=== PATIENT | male | born 1980 | race African-American/Black ===

== ENCOUNTER 2018-03-06 06:50 | Emergency (ER) | payer MEDICAID ==
[~2018-03-06] VITALS: Ht 162.6 cm; Wt 70.0 kg
[2018-03-06] MEDS ORDERED: ONDANSETRON HCL 4MG/2ML VIAL IV STA (07:04)
[2018-03-06] MEDS ORDERED: SODIUM CHLORIDE 0.9% 1,000 ML IV ONE (07:04)
[2018-03-06] MEDS ORDERED: PANTOPRAZOLE SODIUM 40 MG/VIAL IV STA (07:04)
[2018-03-06] MEDS ORDERED: MAGNESIUM/ALUMINUM HYDROXIDE/SIMETHICONE 30ML UDC PO STA (07:04)
[2018-03-06 08:00] LABS: HEMATOCRIT. 29.2 % (42.0-52.0); HEMOGLOBIN. 8.2 g/dL (14.0-18.0); MEAN CORPUSCULAR HEMOGLOBIN 18.7 pg (28.0-32.0); MEAN CORPUSCULAR VOLUME 66.4 fL (80.0-94.0); MEAN PLATELET VOLUME 7.8 fl (7.4-10.4); PLATELET 243 x1000/uL (130-400); RED CELL DISTRIBUTION WIDTH 19.6 % (11.6-14.6)
[2018-03-06 08:05] LABS: CHLORIDE 111 mEq/L (98-107)
[2018-03-06 08:11] LABS: ETHANOL BLOOD < 10 mg/dL
[2018-03-06 09:00] LABS: PLATELET ESTIMATE NORMAL
[2018-03-06] MEDS ORDERED: MORPHINE SULFATE 4 MG/ML CPJ (NOT FOR IM USE) IV ONE (09:30)
[2018-03-06 10:40] VITALS: BP 139/71
== END 2018-03-06 12:16 | disposition home or self-care (01) ==
LOC: ER 06:50
DX: R10.13 Epigastric pain (principal); D64.9 Anemia, unspecified; F17.200 Nicotine dependence, unspecified, uncomplicated
CPT/HCPCS: 36415; 74176; 80053; 83690; 85025; 96374; 96375; 99285; C9113; G0482; J2270; J2405; J7030; Z7610; 96361

== ENCOUNTER 2025-07-06 09:26 | Inpatient (IN) | payer MEDICAID ==
[~2025-07-06] VITALS: Ht 167.6 cm; Wt 59.6 kg
[2025-07-06 09:31] VITALS: O2SAT 100
[2025-07-06] MEDS: MORPHINE SULFATE 4 MG/ML INJ (FOR IV/IM USE) IV ONE (09:49)
[2025-07-06] MEDS: ONDANSETRON HCL 4MG/2ML INJ IV ONE (09:51)
[2025-07-06 09:57] LABS: BASOPHILS % 1.2 % (0.0-2.0); EOSINOPHILS % 0.6 % (0.0-5.0); HEMATOCRIT. 35.0 % (42.0-52.0); HEMOGLOBIN. 10.7 g/dL (14.0-18.0); LYMPHOCYTES % 11.1 % (20.0-50.0); MEAN PLATELET VOLUME 7.9 fl (7.4-10.4); MONOCYTES % 4.6 % (2.0-8.0); NEUTROPHILS % 82.5 % (40.0-76.0); PLATELET 275 x1000/uL (130-400); RED BLOOD CELL COUNT 4.34 mill/uL (4.7-6.1); RED CELL DISTRIBUTION WIDTH 17.7 % (11.6-14.6)
[2025-07-06 10:28] LABS: TROPONIN I HIGH SENSITIVITY 740 ng/L (3.0-53)
[2025-07-06 10:30] LABS: CREATININE 0.8 mg/dL (0.6-1.3); PROTEIN TOTAL 7.1 g/dL (6.0-8.3); UREA NITROGEN BLOOD 7 mg/dL (9-23)
[2025-07-06 10:31] LABS: ASPARTATE AMINOTRANSFERASE 32 IU/L (<34)
[2025-07-06 10:32] LABS: BILIRUBIN DIRECT 0.1 mg/dL (<=3.0); BILIRUBIN TOTAL 0.3 mg/dL (0.1-1.0)
[2025-07-06] MEDS: ASPIRIN 325MG EC TABLET PO ONE (11:15)
[2025-07-06] MEDS ORDERED: ONDANSETRON HCL 4MG/2ML INJ IV PRN (12:30)
[2025-07-06] MEDS ORDERED: MAGNESIUM/ALUMINUM HYDROXIDE/SIMETHICONE 30ML UDC PO PRN (12:30)
[2025-07-06] MEDS ORDERED: DOCUSATE SODIUM 100MG CAPSULE PO PRN (12:30)
[2025-07-06] MEDS ORDERED: ACETAMINOPHEN 325MG TABLET PO PRN ×2 (12:30)
[2025-07-06] MEDS ORDERED: CLONIDINE 0.1MG TABLET PO PRN (12:30)
[2025-07-06] MEDS ORDERED: IPRATROPIUM/ALBUTEROL 0.5-3(2.5)MG/3ML NEB HHN PRN (12:30)
[2025-07-06] MEDS ORDERED: GUAIFENESIN 200MG/10ML SUGAR FREE UDC PO PRN (12:30)
[2025-07-06] MEDS: ENOXAPARIN 60MG/0.6ML SYR SUBCUT NR (12:49)
[2025-07-06] MEDS: ISOSORBIDE MONONITRATE 30MG TABLET SR 24HR PO SCH ×2 (12:57→18:32)
[2025-07-06 13:00] VITALS: BP 159/79; PULSE 73; RESP 19; TEMP 36.2; O2SAT 97
[2025-07-06 15:26] VITALS: BP 159/79; PULSE 73; RESP 19; TEMP 36.1956
[2025-07-06 16:30] VITALS: BP 150/85; PULSE 69; RESP 18; TEMP 36.2; O2SAT 97
[2025-07-06] MEDS: NITROGLYCERIN 0.4MG TABLET SL SL PRN (17:07)
[2025-07-06 18:52] LABS: CLARITY URINE CLEAR (CLEAR); COLOR URINE YELLOW (YELLOW); GLUCOSE URINE NEGATIVE (NEGATIVE); KETONES URINE 2+ (NEGATIVE); LEUKOCYTE ESTERASE URINE NEGATIVE (NEGATIVE); NITRITE URINE NEGATIVE (NEGATIVE); OCCULT BLOOD URINE NEGATIVE (NEGATIVE); PH URINE 8.0 (4.5-8.0); PROTEIN URINE NEGATIVE (NEGATIVE); SPECIFIC GRAVITY URINE 1.014 (1.005-1.030); UROBILINOGEN URINE 0.2 E.U./dL (0.2-1.0)
[2025-07-06 19:07] LABS: *AMPHETAMINES SCREEN URINE NEGATIVE (NEGATIVE)
[2025-07-06 19:08] LABS: *BARBITURATES SCREEN URINE NEGATIVE (NEGATIVE); *BENZODIAZEPINES SCREEN URINE NEGATIVE (NEGATIVE); *COCAINE SCREEN URINE NEGATIVE (NEGATIVE); CANNABINOID URINE SCREEN PRESUMPTIVE POSITIVE (NEGATIVE); ECSTASY MDMA SCREEN URINE NEGATIVE (NEGATIVE); METHADONE URINE SCREEN NEGATIVE (NEGATIVE); OPIATES URINE SCREEN PRESUMPTIVE POSITIVE (NEGATIVE); PHENCYCLIDINE URINE SCREEN NEGATIVE (NEGATIVE)
[2025-07-06 19:24] LABS: TROPONIN I HIGH SENSITIVITY 728 ng/L (3.0-53)
[2025-07-06 19:25] LABS: INR 1.0
[2025-07-06 19:53] VITALS: BP 132/82; PULSE 87; RESP 18; TEMP 36.3; O2SAT 99
[2025-07-06] MEDS: MORPHINE SULFATE 2 MG/ML INJ (NOT FOR IM USE) IV PRN (20:25)
[2025-07-06 20:49] LABS: FOLIC ACID (FOLATE) SERUM 11.51 ng/mL (>5.38)
[2025-07-06 20:50] LABS: VITAMIN B12 SERUM 518 pg/mL (211-911)
[2025-07-06] MEDS: ATORVASTATIN CALCIUM 40MG TABLET PO SCH (21:00)
[2025-07-07] VITALS: BP 134/87; PULSE 89; RESP 18; TEMP 36.6; O2SAT 99
[2025-07-07 04:06] VITALS: BP 142/74; PULSE 77; RESP 18; TEMP 36.3; O2SAT 98
[2025-07-07] MEDS ORDERED: DIPHENHYDRAMINE 50MG/ML VIAL ONE (07:22)
[2025-07-07] MEDS ORDERED: HEPARIN 1000 UNITS/ML 10ML ONE ×2 (07:22→09:35)
[2025-07-07] MEDS ORDERED: ATROPINE SULFATE 1MG/10ML SYR ONE ×2 (07:22→10:14)
[2025-07-07] MEDS ORDERED: LIDOCAINE HCL 1% 20ML VIAL ONE (07:22)
[2025-07-07] MEDS ORDERED: EPINEPHRINE 0.1MG/ML (1:10,000) 10ML SYR ONE (07:22)
[2025-07-07] MEDS ORDERED: VERAPAMIL HCL 2.5 MG/1 ML 2ML VIAL IV ONE (07:22)
[2025-07-07] MEDS ORDERED: IODIXANOL 320MG/ML 100 ML BOTTLE IV ONE ×3 (07:23→10:18)
[2025-07-07 08:14] LABS: BASOPHILS % 0.3 % (0.0-2.0); EOSINOPHILS % 3.3 % (0.0-5.0); HEMATOCRIT. 34.5 % (42.0-52.0); HEMOGLOBIN. 10.7 g/dL (14.0-18.0); LYMPHOCYTES % 20.8 % (20.0-50.0); MEAN PLATELET VOLUME 7.9 fl (7.4-10.4); MONOCYTES % 9.2 % (2.0-8.0); NEUTROPHILS % 66.4 % (40.0-76.0); PLATELET 243 x1000/uL (130-400); RED BLOOD CELL COUNT 4.36 mill/uL (4.7-6.1); RED CELL DISTRIBUTION WIDTH 16.9 % (11.6-14.6)
[2025-07-07 08:27] LABS: CREATININE 0.7 mg/dL (0.6-1.3)
[2025-07-07 08:28] LABS: LDL CHOLESTEROL 93 mg/dL (5-100); PROTEIN TOTAL 6.5 g/dL (6.0-8.3); TRIGLYCERIDE 110 mg/dL (0-150); UREA NITROGEN BLOOD < 5 mg/dL (9-23)
[2025-07-07 08:29] LABS: ASPARTATE AMINOTRANSFERASE 24 IU/L (<34)
[2025-07-07 08:30] VITALS: BP 147/80; PULSE 87; RESP 17; TEMP 36.8; O2SAT 87
[2025-07-07 08:30] LABS: BILIRUBIN DIRECT 0.1 mg/dL (<=3.0); BILIRUBIN TOTAL 0.5 mg/dL (0.1-1.0)
[2025-07-07 08:31] LABS: T4 FREE 0.84 ng/dL (0.89-1.76)
[2025-07-07 08:41] LABS: TROPONIN I HIGH SENSITIVITY 701 ng/L (3.0-53)
[2025-07-07] MEDS: ISOSORBIDE MONONITRATE 30MG TABLET SR 24HR PO SCH (09:00)
[2025-07-07] MEDS: ENOXAPARIN 60MG/0.6ML SYR SUBCUT SCH (09:00)
[2025-07-07] MEDS: ASPIRIN 81MG EC TABLET PO SCH (09:20)
[2025-07-07] MEDS: PANTOPRAZOLE SODIUM 40 MG/VIAL IV SCH (09:25)
[2025-07-07] MEDS ORDERED: LIDOCAINE HCL/PF 1% 10 MG/ML 5ML VIAL ONE (09:35)
[2025-07-07] MEDS ORDERED: FENTANYL CITRATE/PF 50MCG/ML 2ML VIAL ONE (10:14)
[2025-07-07] MEDS ORDERED: MIDAZOLAM HCL 2 MG/2 ML VIAL ONE (10:14)
[2025-07-07] MEDS ORDERED: ATROPINE SULFATE 1MG/10ML SYR IV PRN (11:15)
[2025-07-07 14:30] VITALS: BP 138/73; PULSE 89; RESP 18; TEMP 36.6; O2SAT 100
[2025-07-07] MEDS: ENOXAPARIN 40MG/0.4ML SYR SUBCUT SCH (16:00)
[2025-07-07 16:25] VITALS: BP 131/74; PULSE 86; RESP 18; TEMP 35.7; O2SAT 97
[2025-07-07] MEDS ORDERED: NALOXONE HCL 0.4MG/ML VIAL IV PRN (17:00)
[2025-07-07 20:00] VITALS: BP 140/87; PULSE 77; RESP 20; O2SAT 100
[2025-07-08] VITALS: BP 141/86; PULSE 76; RESP 18; TEMP 36.4; O2SAT 100
[2025-07-08] MEDS: ACETAMINOPHEN 325MG TABLET PO PRN (02:12)
[2025-07-08 04:00] VITALS: BP 136/88; PULSE 77; RESP 20; TEMP 36.3; O2SAT 98
[2025-07-08 07:45] LABS: BASOPHILS % 0.5 % (0.0-2.0); EOSINOPHILS % 3.7 % (0.0-5.0); HEMATOCRIT. 34.8 % (42.0-52.0); HEMOGLOBIN. 10.7 g/dL (14.0-18.0); LYMPHOCYTES % 23.8 % (20.0-50.0); MEAN PLATELET VOLUME 8.1 fl (7.4-10.4); MONOCYTES % 8.1 % (2.0-8.0); NEUTROPHILS % 63.9 % (40.0-76.0); PLATELET 235 x1000/uL (130-400); RED BLOOD CELL COUNT 4.36 mill/uL (4.7-6.1); RED CELL DISTRIBUTION WIDTH 16.9 % (11.6-14.6)
[2025-07-08 07:51] LABS: CREATININE 0.7 mg/dL (0.6-1.3)
[2025-07-08 07:52] LABS: UREA NITROGEN BLOOD 7 mg/dL (9-23)
[2025-07-08 12:00] VITALS: BP 107/67; PULSE 91; RESP 18; TEMP 36.4; O2SAT 99
[2025-07-08 14:10] VITALS: BP 107/67; PULSE 91; RESP 18; TEMP 97.6
== END 2025-07-08 14:00 | disposition home or self-care (01) | DRG 190 ==
LOC: ER 09:26 → 8WST 11:38 → EDBEDREQTM 11:52 → EDBEDREQ 11:52
PROVIDERS: ADMIT Internal Medicine; ATTEND Internal Medicine
PROC: 4A023N7 Measurement of Cardiac Sampling and Pressure, Left Heart, Percutaneous Approach (ICD-10-PCS; principal; 2025-07-07)
PROC: B211YZZ Fluoroscopy of Multiple Coronary Arteries using Other Contrast (ICD-10-PCS; 2025-07-07)
DX: I21.4 Non-ST elevation (NSTEMI) myocardial infarction (principal); I50.33 Acute on chronic diastolic (congestive) heart failure; I11.0 Hypertensive heart disease with heart failure; D64.9 Anemia, unspecified; I25.10 Atherosclerotic heart disease of native coronary artery without angina pectoris; I16.0 Hypertensive urgency; F17.210 Nicotine dependence, cigarettes, uncomplicated; Z20.822 Contact with and (suspected) exposure to COVID-19; R73.9 Hyperglycemia, unspecified; D72.828 Other elevated white blood cell count; Z79.899 Other long term (current) drug therapy; Z79.82 Long term (current) use of aspirin
CPT/HCPCS: 36415; 71045; 76705; 80048; 80061; 80076; 80305; 81003; 82553; 82607; 82728; 82746; 83036; 83540; 83550; 84439; 84443; 84484; 85025; 85044; 87426; 93005; 93306; 93458; 96374; 96375; 99291; A4615; C1769; C1887; C1893; J0461; J1200; J1644; J1650; J2003; J2250; J2270; J2405; J2470; J3010; J3490; Q9967